=== PATIENT | male | born 1990 | race African-American/Black ===

== ENCOUNTER 2018-01-06 15:31 | Emergency (ER) | payer OTHER ==
[~2018-01-06] VITALS: Ht 193 cm; Wt 84.0 kg
[2018-01-06 19:48] VITALS: BP 125/75
== END 2018-01-06 19:55 | disposition home or self-care (01) ==
LOC: ER 15:31
DX: G56.22 Lesion of ulnar nerve, left upper limb (principal); M79.1 Myalgia; F17.210 Nicotine dependence, cigarettes, uncomplicated
CPT/HCPCS: 99281

== ENCOUNTER 2019-04-18 10:56 | Emergency (ER) | payer MEDICAID, OTHER ==
[~2019-04-18] VITALS: Ht 177.8 cm; Wt 89.0 kg
[2019-04-18 11:01] VITALS: BP 129/72
== END 2019-04-18 16:07 | disposition left against medical advice (07) ==
LOC: ER 10:56
DX: R50.9 Fever, unspecified (principal); R06.02 Shortness of breath; Z53.21 Procedure and treatment not carried out due to patient leaving prior to being seen by health care provider